=== PATIENT | female | born 1995 | race Caucasian/White ===

== ENCOUNTER 2017-05-02 21:44 | Emergency (ER) | payer BC, OTHER ==
[~2017-05-02] VITALS: Ht 154.9 cm; Wt 57.7 kg
[2017-05-02 21:48] VITALS: Ht 154.9 cm; Wt 57.7 kg
[2017-05-02] MEDS ORDERED: DTRSR/2 PO (22:06)
[2017-05-02] MEDS ORDERED: IBUP-103 PO (22:06)
[2017-05-02] MEDS ORDERED: BCPILLS PO (22:06)
--- NOTE | 2017-05-02 22:32 | DIAGNOSTIC IMAGING REPORT ---
LUMBAR SPINE WITHOUT CLINICAL HISTORY: 22 years-old Female presenting with fall, left lumbar pain. TECHNIQUE: Multidetector CT of the lumbar spine was performed without the use of intravenous contrast. IV contrast: None. A dose lowering technique was used consistent with the principles of ALARA (as low as reasonably achievable). COMPARISON: None. CT DOSE (mGy.cm): The estimated cumulative dose is 412.17 mGy.cm. FINDINGS: Dentist topogram: Unremarkable. Normal lumbar lordosis. Suspected congenital lack of development of the lamina and spinous processes of every lumbar level as well as several sacral levels. Vertebral bodies maintain normal height and alignment. Intervertebral discs preserved. No acute fracture or subluxation. Paraspinal soft tissues within normal limits allowing for noncontrast technique. IMPRESSION: 1. 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 2. No acute osseous injury. Electronically signed by: Jeff Spangler M.D. 05/02/2017 10:30 PM Dictated Date/Time: 05/02/2017 10:25 PM
[2017-05-02] MEDS ORDERED: CEFDINIR 300 MG CAP PO STA (22:41)
[2017-05-02] MEDS ORDERED: CEFD300C2 PO (23:13)
[2017-05-02 23:24] VITALS: BP 123/80; PULSE 93; TEMP 37; O2SAT 99
--- NOTE | 2017-05-02 23:30 | EMERGENCY ROOM VISIT NOTE ---
History Report prepared by Malena: Perla Veras Under the Supervision of: Doc RoblesO. First contact with patient: 21:52 Chief Complaint: BACK PAIN Stated Complaint: SEVERE BACK PAIN History of Present Illness The patient is a 22 year old female who presents to the Emergency Room with complaints of persistent left lower back pain that began a few days ago. She reports that she was walking outside a few days ago when she slipped on ice, noting that she landed on her buttocks. The patient notes that she did not see anyone for her pain, noting it severely worsened today. She denies any urinary symptoms or vaginal discharge. The patient states that she has been taking Advil , which has not been relieving her symptoms. She notes a history of chronic weakness in her right leg, incontinence, a heart murmur, 3 tethered cord releases, a thyroglossal duct cyst, and self catheterization. Source of History: patient Onset: few days ago Position: back (left lower) Symptom Intensity: severe Quality: other (left lower back pain) Timing: other (persistent) Associated Symptoms: No urinary symptoms Note: Patient denies vaginal discharge. Review of Systems See HPI for pertinent positives & negatives. A total of 10 systems reviewed and were otherwise negative. Past Medical & Surgical Medical Problems: (1) Bronchitis (2) Heart murmur (3) Incontinence (4) Right leg weakness (5) Self-catheterizes urinary bladder (6) Spina bifida occulta (7) Urinary problem Surgical Problems: (1) Tethered cord (2) Thyroglossal duct cyst Family History Heart disease Hypertension Social History Smoking Status: Never Smoker Smokeless Tobacco Use: No Alcohol Use: occasionally Drug Use: none Marital Status: single Housing Status: lives with roommate Occupation Status: [employer] student Current/Historical Medications Scheduled Control Pills ( Control Pills), 1 TAB PO DAILY Cefdinir (Omnicef), 300 MG PO Q12H Tolterodine Tartrate (Detrol LA), 1 TAB PO DAILY Scheduled PRN Ibuprofen Tab (Advil), 200-600 MG PO Q4H PRN for Pain Allergies Coded Allergies: Latex1 -Allergic Contact Dermititis (Verified Allergy, Intermediate, SKIN IRRITATION, 05/02/17) Physical Exam Vital Signs Date Time Temp Pulse Resp B/P (MAP) Pulse Ox O2 Delivery O2 Flow Rate FiO2 05/02/17 23:24 37.0 93 20 123/80 99 05/02/17 23:17 93 20 123/80 99 Room Air 05/02/17 22:48 98 20 137/102 100 Room Air 05/02/17 21:48 37.0 96 18 132/83 94 Room Air Physical Exam GENERAL: Patient is awake, alert, and in no acute distress. Patient is resting comfortably and showing no signs of anxiety EYES: The conjunctivae are clear. The pupils are round and reactive. EARS, NOSE, MOUTH AND THROAT: The nose is without any evidence of any deformity. Mucous membranes are moist tongue is midline NECK: The neck is nontender and supple. RESPIRATORY: Normal respiratory effort is noted there is no evidence of wheezing rhonchi or rales CARDIOVASCULAR: Regular rate and rhythm noted there no murmurs rubs or gallops normal S1 normal S2 GASTROINTESTINAL: The abdomen is soft. Bowel sounds are present in all quadrants. Abdomen is nontender BACK: Low lumbar tenderness to palpation. Left flank tenderness to palpation. MUSCULOSKELETAL/EXTREMITIES: There is no evidence of gross deformity full range of motion is noted in the hips and shoulders SKIN: There is no obvious evidence of any rash. There are no petechiae, pallor or cyanosis noted. NEUROLOGIC: Awake, alert, oriented x 3. Patellar reflex absent on right and 2+ on left. Achilles tenderness reflex was 1+ bilaterally. Great toe raise was symmetric. Medical Decision & Procedures ER Provider Diagnostic Interpretation: Radiology results as stated below per my review and radiologist interpretation: LUMBAR SPINE WITHOUT CLINICAL HISTORY: 22 years-old Female presenting with fall, left lumbar pain. TECHNIQUE: Multidetector CT of the lumbar spine was performed without the use of intravenous contrast. IV contrast: None. A dose lowering technique was used consistent with the principles of ALARA (as low as reasonably achievable). COMPARISON: None. CT DOSE (mGy.cm): The estimated cumulative dose is 412.17 mGy.cm. FINDINGS: [employer] Administrator topogram: Unremarkable. Normal lumbar lordosis. Suspected congenital lack of development of the lamina and spinous processes of every lumbar level as well as several sacral levels. Vertebral bodies maintain normal height and alignment. Intervertebral discs preserved. No acute fracture or subluxation. Paraspinal soft tissues within normal limits allowing for noncontrast technique. IMPRESSION: 1. 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 2. No acute osseous injury. Electronically signed by: Jeff Spangler M.D. 05/02/2017 10:30 PM Dictated Date/Time: 05/02/2017 10:25 PM Laboratory Results Test 05/02/17 20:10 Urine Color YELLOW Urine Appearance CLOUDY (CLEAR) Urine pH 6.5 (4.5-7.5) Urine Specific [place] 1.022 (1.000-1.030) Urine Protein 2+ (NEG) Urine Glucose (UA) NEG (NEG) Urine Ketones NEG (NEG) Urine Occult Blood 3+ (NEG) Urine Nitrite POS (NEG) Urine Bilirubin NEG (NEG) Urine Urobilinogen NEG (NEG) Urine Leukocyte Esterase MODERATE (NEG) Urine WBC (Auto) >30 /hpf (0-5) Urine RBC (Auto) >30 /hpf (0-4) Urine Hyaline Casts (Auto) 1-5 /lpf (0-5) Urine Epithelial Cells (Auto) 10-20 /lpf (0-5) Urine Bacteria (Auto) 2+ (NEG) Laboratory results per my review. Medications Administered Medications (Trade) Dose Ordered Sig/Nelson Route Start Time Stop Time Status Last Admin Dose Admin Cefdinir (Omnicef Cap) 600 mg ONE STAT PO 05/02/17 22:41 05/02/17 22:43 DC 05/02/17 22:46 600 MG ED Course 2200: The patient was evaluated in room C1. A complete history and physical examination were performed. 2241: Ordered Cefdinir 600mg PO. 2301: Discussed the patient's case with the patient's uncle, who states he is a neuro surgeon. I discussed test findings and the treatment plan. He verbalized understanding and agreement. 2320: I reevaluated the patient, who was resting comfortably. Discussed the test results and treatment plan with her. She verbalized complete agreement. She is ready for discharge. Medical Decision Prior records/ancillary studies reviewed. Triage Nursing notes reviewed. Additional history obtained from patient. The patient's history was concerning for back pain. Differential diagnosis: Etiologies such as musculoskeletal, disc herniation, fracture, aortic disease, metastatic disease, cord compression, discitis, infection, renal colic, gastrointestinal, acute exacerbation of chronic back pain, sciatica, cauda equina, as well as others were entertained. The patient is a 22-year-old female who presented to the emergency department for evaluation of back pain. The patient had left sided back pain. She had a fall recently and felt that the pain she was having was mechanical. She does have a surgical history on her lumbar spine. She was concerned about an injury to this area. She also self catheterizes her bladder for neurogenic bladder. Her urinalysis appears to be consistent with infection. This was sent for culture. The patient was started on Omnicef. The patient did not wish to have any pain medication. Her CT does not appear to show any signs of acute injury. Her uncle who is also a neurosurgeon called to ask about the patient's condition. At this time she does not appear to have any signs of higher urinary tract infection. She states that she did have a fever earlier in the week and also had some nausea yesterday but at this time she has no nausea vomiting or fever. She does not appear to have any abdominal pain. I recommended that she continue all medications as prescribed to drink plenty clear liquids. She was also encouraged to follow-up with [facility] within the next few days for reevaluation but return to the emergency department immediately if symptoms change worsen or the need arises. Medication Reconcilliation Current Medication List: was personally reviewed by me Blood Pressure Screening Patient's blood pressure: Normal blood pressure Blood pressure disposition: Did not require urgent referral Impression Primary Impression: Urinary tract infection Additional Impressions: Fall Lumbar contusion Scribe Attestation The scribe's documentation has been prepared under my direction and personally reviewed by me in its entirety. I confirm that the note above accurately reflects all work, treatment, procedures, and medical decision making performed by me. Departure Information Dispostion Home / Self-Care Prescriptions Cefdinir (OMNICEF) 300 Mg Cap 300 MG PO Q12H, #14 CAP Prov: Francisco Salas, DO 05/02/17 Referrals No Doctor, Assigned (PCP) Forms HOME CARE DOCUMENTATION FORM, IMPORTANT VISIT INFORMATION Patient Instructions My [facility] Additional Instructions Continue all medications as prescribed. Drink plenty clear liquids. Continue using Motrin and Tylenol for pain. Follow-up with [facility] this week for reevaluation. Return to the emergency department immediately if symptoms change worsen or the need arises. Problem Qualifiers Primary Impression: Urinary tract infection Urinary tract infection type: acute cystitis Hematuria presence: with hematuria Qualified Codes: N30.01 - Acute cystitis with hematuria Additional Impressions: Fall Encounter type: initial encounter Qualified Codes: W19.XXXA - Unspecified fall, initial encounter Lumbar contusion Encounter type: initial encounter Qualified Codes: S30.0XXA - Contusion of lower back and pelvis, initial encounter
--- NOTE | 2017-05-05 14:46 | Pharmacy Progress Note ---
ED Pharmacist Culture FollowUp Date of Service: May 05, 2017. Patient was sent home with a prescription for cefdinir 300mg BID X 7 days, which should cover the E. Coli growing from the patient's urine culture.
== END 2017-05-02 23:25 | disposition home or self-care (01) ==
LOC: C.EDB 21:46 → C.EDC 23:25
DX: S30.0XXA Contusion of lower back and pelvis, initial encounter (principal); W00.9XXA Unspecified fall due to ice and snow, initial encounter; N30.01 Acute cystitis with hematuria; N31.9 Neuromuscular dysfunction of bladder, unspecified; Z79.3 Long term (current) use of hormonal contraceptives; Z91.040 Latex allergy status; Z82.49 Family history of ischemic heart disease and other diseases of the circulatory system